=== PATIENT | female | born 1990 | race Two or more races ===

== ENCOUNTER 2023-07-12 21:24 | Emergency (ER) | payer MEDICAID, OTHER ==
[~2023-07-12] VITALS: Ht 165.1 cm; Wt 80.6 kg
[2023-07-12 23:16] LABS: COVID19 ANTIGEN SOFIA FIA NEGATIVE (NEGATIVE); Rapid Influenza A Negative (Negative); Rapid Influenza B Negative (Negative)
[2023-07-12] MEDS ORDERED: BENZ100C97 PO (23:45)
[2023-07-12] MEDS ORDERED: ACET500T58 PO (23:45)
[2023-07-12] MEDS ORDERED: LORA10CA PO (23:45)
[2023-07-12 23:58] VITALS: BP 105/57; PULSE 68; RESP 18; TEMP 98.2; O2SAT 98
== END 2023-07-13 | disposition home or self-care (01) ==
LOC: ER 21:24
DX: J06.9 Acute upper respiratory infection, unspecified (principal); B97.89 Other viral agents as the cause of diseases classified elsewhere; Z20.822 Contact with and (suspected) exposure to COVID-19
CPT/HCPCS: 36415; 87426; 87804

== ENCOUNTER 2024-02-21 09:03 | Emergency (ER) | payer MEDICAID ==
[~2024-02-21] VITALS: Ht 165.1 cm; Wt 88.0 kg
[~2024-02-21 09:03] MED LIST: ACET500T58 PO; BENZ100C97 PO; LORA10CA PO
[2024-02-21 09:22] VITALS: BP 102/53; PULSE 87; RESP 18; TEMP 98.5; O2SAT 97
[2024-02-21] MEDS ORDERED: IBUP1TAB5 PO (10:26)
== END 2024-02-21 10:28 | disposition home or self-care (01) ==
LOC: ER 09:03
DX: M79.672 Pain in left foot (principal); Z79.899 Other long term (current) drug therapy
CPT/HCPCS: 73630